=== PATIENT | male | born 1975 | race Caucasian/White ===

== ENCOUNTER → 2016-10-27 | Outpatient (CLI) | payer MEDICARE, SELFPAY ==
[~2016-10-27] MED LIST: ABILIFY10 MG PO; ALLERGY RELIEF180 MG PO; COLESTID1 G1 PO; COREG25 MG PO; ESCITALOPRAM OX20 MG PO; KLONOPIN1 MG PO; LAMICTAL200 MG PO; LISINOPRIL-HCT1 EAC2 PO; MOBIC15 MG PO; MULTIPLE VITAM1 EACH PO; NORVASC5 MG PO; PATANOL5 ML EYEBOTH; PROTONIX40 MG PO; WELCHOL625 MG PO; ZOLOFT50 MG PO
== END | disposition short-term general hospital (02) ==
LOC: CLPULM 09:17
DX: J44.9 Chronic obstructive pulmonary disease, unspecified (principal)

== ENCOUNTER → 2016-11-24 | Outpatient (CLI) | payer MEDICARE, SELFPAY | END | disposition short-term general hospital (02) | LOC: CLPULM 13:19 | DX: J44.9 Chronic obstructive pulmonary disease, unspecified (principal); H91.92 Unspecified hearing loss, left ear; F32.9 Major depressive disorder, single episode, unspecified; F41.9 Anxiety disorder, unspecified; K21.9 Gastro-esophageal reflux disease without esophagitis; E78.1 Pure hyperglyceridemia; I10 Essential (primary) hypertension; N52.9 Male erectile dysfunction, unspecified; G47.33 Obstructive sleep apnea (adult) (pediatric); Z87.891 Personal history of nicotine dependence ==